=== PATIENT | male | born 1970 | race Caucasian/White ===

== ENCOUNTER 2020-01-03 08:48 | Outpatient (CLI) | payer OTHER, SELFPAY ==
--- NOTE | 2020-01-07 13:39 | SLEEP_ITS ---
Home Sleep Test. DATE OF STUDY: 01/03/2020 REASON FOR THE STUDY: Obstructive sleep apnea syndrome. HISTORY: The patient is a 49-year-old male, 5 feet 10 inches tall, weighing 287 pounds with a body mass index of 41.1. He has a documented history of obstructive sleep apnea syndrome, currently untreated. The patient did not complete any sleep survey. His medical record indicates that he had a history of sleep apnea, but I do not have documentation. He has been gaining weight recently. He does not appear to have hypertension or depression, although he does have erectile dysfunction, hyperlipidemia, migraines, chronic knee pain, atypical chest pain, hypogonadism, osteoarthritis, anemia due to B12 deficiency, and splenomegaly. He was scheduled to have a home sleep study on the last visit, but he failed to follow through with it. He does snore, wakes up feeling unrefreshed, has excessive daytime sleepiness. He has irritable bowel syndrome. He has a mildly positive rheumatoid factor in the past. He presents at this time for home sleep test. MEDICATIONS: 1. Fluticasone nasal spray 1 spray each nostril twice a day. 2. Meloxicam 15 mg daily as needed for pain. DESCRIPTION OF THE STUDY: On the [place]de Sleepiness Scale, he does not look like he filled it out. This was conducted as a home sleep test with 4-channel monitoring including respiratory effort channel, oxygen desaturation channel, snoring channel, and heart rate channel. The study was scored using [facility] guidelines. Duration of the study was 5 hours 55 minutes. The apnea-hypopnea index was 5. Minimum desaturation was 84%. The mean saturation was 89%. He had 2 apneas that were both obstructive. 27 hypopneas. He had 43 snoring events. He had 1828 limited breaths without snoring. He had 28 desaturations and spent 56% of the study 199 minutes below 88% saturation. Heart rate ranged from 43 to 86. IMPRESSION: 1. Mild obstructive sleep apnea syndrome G47.33 with sustained hypoxemia throughout over half the study. Study duration was 5 hours 55 minutes. The patient does not have the comorbidities including hypertension or depression, which would allow him to proceed with CPAP titration. His symptom severity score is really not known because he did not complete a survey. Home sleep tests often under-represent severity of illness because the exact amount of sleep is not known. If the symptoms are significant, we would recommend the patient have an in-lab split night study using a sleep aid. He definitely has sustained hypoxemia and this is likely due to obstructive sleep apnea syndrome; however, we cannot initiate CPAP therapy based on the apnea-hypopnea index, which is due to insurance guidelines. 2. Elevated body mass index 41.1. The patient is being encouraged to strive to achieve ideal body mass index. 3. Multiple medical problems as listed above. ELLIOT RUBALCAVA M.D. NIGHT SUPERVISOR NIGHT SUPERVISOR D I MT: Dorian BANSAL
== END 2020-01-03 08:49 | disposition home or self-care (01) ==
LOC: ANHCSM 08:50
PROVIDERS: Visit Provider Family Medicine
DX: G47.33 Obstructive sleep apnea (adult) (pediatric) (principal)
CPT/HCPCS: 95806

== ENCOUNTER 2020-09-07 09:41 | Outpatient (CLI) | payer OTHER, SELFPAY ==
--- NOTE | 2020-09-07 09:45 | ECHO_ITS ---
Patient Info Name: Marcos Lainez Age: 50 years : 1970 Gender: Male Ht: 71 in Wt: 289 lbs BSA: 2.62 m2 BP: 151 / 79 mmHg Heart Rhythm: Sinus Rhythm Exam Date: 09/07/2020 9:56 AM Exam Location: [facility] Patient Status: Outpatient Admit Date: 09/07/2020 Staff Ordering Physician: Yazan Hannah MD Senior Electronics Design Engineer: Lily Martin RDCS Attending Provider: Yazan Hannah MD Referring Physician: Brielle CASTRO; Exam Type: CA echo doppler color flow Study Info Indications - AORTIC ECTASIA Complete two-dimensional, color flow and Doppler transthoracic echocardiogram is performed. Summary 1. Complete two-dimensional, color flow and Doppler transthoracic echocardiogram is performed. 2. Left ventricular chamber size, systolic and diastolic function are normal with no regional wall motion abnormalities with an estimated ejection fraction of 60-65%. Mild left ventricular hypertrophy. Borderline low average global longitudinal strain of-17%, suggesting borderline low systolic function dysfunction. 3. Right ventricular chamber dimension is mildly enlarged with normal contractility. 4. Normal aortic root size. Sinuses of Valsalva are generous at 3.6 cm. Ascending aorta is normal, 2.9 cm. Aortic arch is generous, 3.2-3.7 cm. Normal descending thoracic aorta that can be visualized, 2.1 cm. Normal abdominal aorta they can be visualized, 1.7-2.4 cm. 5. No significant valve disease. 6. Unable to calculate pulmonary pressure with this study. 7. Normal sinus rhythm. Left Ventricle Left ventricular chamber dimension is normal. Left ventricular systolic function is normal, estimated at 60-65%. There is mildly increased left ventricular wall thickness. Left ventricular septal wall motion is normal. The left ventricular diastolic function is normal. Global longitudinal strain is mildly elevated at 17 %. Left ventricular chamber size, systolic and diastolic function are normal with no regional wall motion abnormalities with an estimated ejection fraction of 60-65%. Mild left ventricular hypertrophy. Borderline low average global longitudinal strain of-17%, suggesting borderline low systolic function dysfunction. Right Ventricle Right ventricular chamber dimension is mildly enlarged with normal contractility. Right ventricular systolic function is normal. Left Atria Left atrial chamber dimension is normal. Right Atria Right atrial chamber dimension is normal. Aortic Valve The aortic valve is trileaflet. There is no aortic valve sclerosis. There is no aortic valve stenosis. There is no aortic valve regurgitation. Pulmonic Valve The pulmonic valve is normal. There is no pulmonic valve stenosis. There is trace pulmonic regurgitation. Mitral Valve The mitral valve has normal leaflets. There is no mitral valve stenosis. There is trace mitral valve regurgitation. Tricuspid Valve The tricuspid valve leaflets are normal. There is no significant tricuspid valve stenosis. There is trace tricuspid valve regurgitation. No pulmonary hypertension, estimated pulmonary arterial systolic pressure is Empty. Pericardium/Pleural The pericardium appears normal. There is no pericardial effusion. Inferior Vena Cava Normal inferior vena cava with >50% collapse upon inspiration consistent with Empty right atrial pressure, Empty. Aorta The aortic root size at the sinus of Valsalva is normal. The prox ascending aorta size is borderline dilated. The aor
== END 2020-09-07 09:42 | disposition home or self-care (01) ==
PROVIDERS: Visit Provider Family Medicine
DX: I77.810 Thoracic aortic ectasia (principal)
CPT/HCPCS: 93306

== ENCOUNTER 2020-09-09 00:59 | Outpatient (CLI) | payer OTHER, SELFPAY ==
[2020-09-09 18:59] LABS: SARS-CoV-2 RNA PCR Negative
== END 2020-09-09 01:00 | disposition home or self-care (01) ==
LOC: ANHCOVIDDT 00:59
PROVIDERS: Visit Provider Internal Medicine Critical Care Medicine
DX: Z01.812 Encounter for preprocedural laboratory examination (principal); Z20.828 Contact with and (suspected) exposure to other viral communicable diseases
CPT/HCPCS: 87635; C9803; U0003

== ENCOUNTER 2020-09-12 08:23 | Outpatient (CLI) | payer OTHER, SELFPAY ==
--- NOTE | 2020-10-09 09:31 | WPDSLEEPSTUD ---
Sleep Study Date of Study: 09/12/20 Ordering Provider: Yazan Hannah MD Interpreting Physician: Disha Schultz MD Sleep Study Type: Polysomnogram Height: 1.8 m Weight: 131.542 kg Body Mass Index: 40.4 Neck Circumference: 44.45 cm [place]: 2 Reason for Sleep Study History of obstructive sleep apnea syndrome on a home sleep test 01/03/2020 with hypoxemia Sleep History Marcos Lainez is a 50 yo man with a history of obstructive sleep apnea syndrome who was not on treatment in the past. On January 03, 2020 he had a home sleep test with sustained hypoxemia and an apnea-hypopnea index of 5. He did not have medical comorbidities such as hypertension or depression that would allow him to proceed with treatment. During the home sleep test in January he spent 58% of the study, 199 minutes below 88% saturation. his basic sleep study was performed to further evaluate his degree of sleep disordered breathing. the patient occasionally snores, rarely loudly enough that others complain about it. he does not awaken at night with heartburn, belching or coughing. He rarely awakens from sleep feeling short of breath. He rarely has trouble sleep with a cold, rarely wakes up gasping for breath at night. He does not have breathing problems at night reported to him by others. He does not sweat excessively at night. He occasionally notices his heart pounding irregularly at night. He rarely falls asleep during the day, never involuntarily and never while driving. He does not fall asleep during physical effort. He does not have loss of muscle tone during strong emotion. He does not have daytime difficulties due to excessive sleepiness. He does not feel paralyzed on waking or falling asleep. He does not have vivid dreamlike scenes upon awakening or falling asleep. He is never afraid to go to sleep. He rarely has anxiety. He does not feel sad or depressed. He rarely has racing thoughts and rarely remembers his dreams. He never has nightmares. He occasionally notices parts of his body jerking. He rarely kicks at night. He does not have Reyes aching feelings in his legs, does not have leg pain at night and does not have morning jaw pain. He does not grind his teeth during sleep. He rarely has bothered by pain during the day. He has never awakened by pain at night. He frequently wakes up feeling stiff in the morning with sore achy muscles and pain in the neck and spine. He has palpitations, bowel disturbances, and stomach problems. He reports having sinus problems and problems with GERD. Normal bedtime is midnight falling asleep within 15 minutes, waking 2-3 times to urinate. during these nighttime awakenings he stays awake for about 5 minutes and then returns to sleep. We can schedule shows that he goes to bed at 1:00 a.m. instead of been night. During the weekday he wakes at 7:00 a.m. and on weekends 9:00 a.m.. He does not usually take naps. A short nap may be refreshing. He feels better in the afternoon in the morning. Habits: Never smoked tobacco. He drinks 3 sodas a day 32 oz each. He has 1 alcoholic beverage a week. [facility] Past Medical History Medical History (Updated 10/09/20 @ 09:51 by Disha Schultz MD) Atypical chest pain Dilated aortic root Encounter for prostate cancer screening Gastritis GERD (gastroesophageal reflux disease) Male erectile dysfunction, unspecified Morbid obesity with BMI of 40.0-44.9, adult Obstructive sleep apnea of adult Protein in urine Vitamin B12 deficiency anemia Vitamin D deficiency, unspecified Family History Family History Sibling Family history of gastrointestinal disorder Mother Patient's mother is in good health Family history of arthritis Father Patient's father is , Onset Age: 57 Family history of pancreatic cancer Grandparent Family history of liver disease, Onset Age: 55 Family history of arthritis Family histor
[2020-10-09 10:05] VITALS: BMI 40.4
== END 2020-09-12 08:24 | disposition home or self-care (01) ==
LOC: ANHCSM 08:23
PROVIDERS: Visit Provider Family Medicine
DX: G47.33 Obstructive sleep apnea (adult) (pediatric) (principal); E66.9 Obesity, unspecified; Z68.41 Body mass index [BMI] 40.0-44.9, adult
CPT/HCPCS: 95810

== ENCOUNTER 2020-10-23 14:38 | Outpatient (CLI) | payer OTHER, SELFPAY ==
--- NOTE | ~2020-10-23 | CT_ITS ---
EXAMINATION: CT abdomen pelvis wo con EXAM DATE: 10/23/2020 15:00 INDICATION: Left flank pain. TECHNIQUE: Spiral CT of the abdomen and pelvis was performed without contrast. Axial, coronal and s agittal images were reviewed. The dose-length product (DLP) for this examination was 1555.82 mGy-cm. The exposure was tailored according to patient size (auto mA exposure control), and iterative recon struction (ASIR) was used as additional dose reduction technique. There is no prior study for compar segun. FINDINGS: The liver, spleen, adrenal glands and pancreas are unremarkable. Gallbladder is unremarkab le. No biliary obstruction. There is no nephrolithiasis or hydronephrosis. The prostate is unrema rkable. The bladder is unremarkable. There is no retroperitoneal or pelvic lymphadenopathy. The appendix is normal. The stomach and small bowel are unremarkable. There is expected amount of c olonic stool. No free intraperitoneal gas. The heart is normal in size. There are no pericardial or pleural effusions. The lung bases are unremarkable. The bones are unremarkable. IMPRESSION: 1. No acute intra-abdominal findings. Reviewed, dictated and finalized at location B. RINGER
== END 2020-10-23 14:39 | disposition home or self-care (01) ==
LOC: ANHIMG 14:47
PROVIDERS: Visit Provider Family Medicine
DX: R10.9 Unspecified abdominal pain (principal); R31.29 Other microscopic hematuria
CPT/HCPCS: 74176

== ENCOUNTER 2020-11-07 07:56 | Outpatient (CLI) | payer OTHER, SELFPAY ==
--- NOTE | ~2020-11-07 | CT_ITS ---
EXAMINATION: CT abdomen pelvis wo/w con DATE: 11/07/2020 08:56 INDICATION: Gross hematuria TECHNIQUE: Computed tomography (CT) of the abdomen and pelvis was performed without and subsequently with 130 cc Omnipaque 350 intravenous contrast. Automated exposure control and iterative reconstructi on technique were employed. Exam dose: 3229.55 mGy-cm total exam DLP. COMPARISON: 10/23/2020 CT abdomen pelvis FINDINGS: There is mild discoid atelectasis or scarring in the medial segment of the middle lobe. The lung bases are otherwise clear. Normal heart size. No pericardial or pleural effusion. There is a several millimeter right hepatic cyst (series 7 image 34). Otherwise the liver, gallbladde r, bile ducts, spleen, pancreas and adrenal glands are unremarkable. Approximately 5 right renal cysts are noted, the largest approximately 1.3 cm. There is a nonspecific focal anterolateral right renal upper pole approximately 8 x 10 mm area of hyp oenhancement. Differential diagnosis includes complicated cyst, small focal infarct, focal area of py elonephritis, small hypernephroma. No left renal mass lesion is detected. No urinary tract calculus or hydroureteronephrosis. No filling defect of the renal collecting structures, ureters or urinary bladder is evident. Mild pro minence of the prostate gland. No thickening of the wall of the urinary bladder. Normal caliber of the abdominal aorta. No intraperitoneal or retroperitoneal or pelvic mass lesion or adenopathy or ascites. Normal appendix. No bowel obstruction, bowel wall thickening, pneumatosis or intraperitoneal free air . Included skeletal structures are unremarkable. No suspicious osteolytic or osteoblastic lesions are n oted. IMPRESSION: Indeterminate approximately 8 x 10 mm focal area of diminished enhancement in the periph eral aspect of the anterolateral upper pole of the right kidney; differential diagnosis is given abov e. Consider at a minimum [address] follow-up. Right renal cysts measuring up to 1.3 cm Reviewed, dictated and finalized at Location A. Reviewed, dictated and finalized at location A. STERED NURSE POST PARTUM IMPRESSION: Indeterminate approximately 8 x 10 mm focal area of diminished enh ancement in the peripheral aspect of the anterolateral upper pole of the right kidney; differential diagnosis is given above. Consider at a minimum [address] follow-up. Right renal cysts measuring up to 1.3 cm
== END 2020-11-07 07:57 | disposition home or self-care (01) ==
PROVIDERS: Visit Provider Urology
DX: R31.0 Gross hematuria (principal); N28.1 Cyst of kidney, acquired
CPT/HCPCS: 74178; Q9967

== ENCOUNTER 2021-01-31 09:55 | Outpatient (CLI) | payer OTHER, SELFPAY ==
--- NOTE | ~2021-01-31 | MR_ITS ---
EXAMINATION: MR abdomen wo/w con DATE: 01/31/2021 11:14 INDICATION: Right renal cyst TECHNIQUE: Magnetic resonance imaging (MRI) of the abdomen was performed without and with 20 mL Multi ruth intravenous contrast. Sequences included coronal T2-weighted SS-FSE, coronal and axial FS 2D-F IESTA, axial STIR FSE, axial T2-weighted SS-FSE, axial T2-weighted FS SS-FSE, axial diffusion-weighte d SE, axial dual-echo T1-weighted FSPGR, and axial and coronal T1-weighted LAVA. Postcontrast axial T 1-weighted LAVA images were obtained in a time course. Postcontrast coronal T1-weighted LAVA images w ere obtained. COMPARISON: CT dated 11/07/2020 FINDINGS: Heart size is normal. No pericardial or pleural effusion. Tiny 4 mm nonenhancing T2 hyperintense cyst at the posterior dome of the liver. Liver is otherwise unremarkable. Gallbladder is normal. No intra or extrahepatic primary ductal dilation. Spleen, pancreas, bilateral adrenal glands and left kidney are normal. A few T2 hyperintense right renal cysts the largest measuring 1.5 cm. There is a 10 mm Tommy sniak 2 cyst at the upper pole of the right kidney with internal thin internal septation. Finally the re is an 8 mm enhancing nodule at the anterosuperior aspect of the upper pole of the right kidney con sistent with renal cell carcinoma. Visualized portions of the bowels are unremarkable with no obstruc tion. Small fat-containing umbilical hernia. No pathologically enlarged abdominal lymphadenopathy. No rmal bone marrow signal throughout. IMPRESSION: 1. 8 mm enhancing nodule at the upper pole of the right kidney concerning for renal cell carcinoma. Reviewed, dictated and finalized at location B. ING AND TRIM INSTALLER IMPRESSION: 1. 8 mm enhancing nodule at the upper pole of the right kidney concerning for r enal cell carcinoma.
[2021-01-31 10:44] LABS: Estimated Glomerular Filt Rate > 60
== END 2021-01-31 09:56 | disposition home or self-care (01) ==
PROVIDERS: PCP Family Medicine; Visit Provider Urology
DX: N28.1 Cyst of kidney, acquired (principal)
CPT/HCPCS: 74183; A9577

== ENCOUNTER → 2022-02-25 02:46 | Outpatient (CLI) | payer OTHER, SELFPAY ==
[2022-02-25 11:33] LABS: SARS-CoV-2 RNA PCR Negative
== END ==
PROVIDERS: PCP Family Medicine; Visit Provider Internal Medicine Gastroenterology
DX: Z01.812 Encounter for preprocedural laboratory examination (principal); Z20.822 Contact with and (suspected) exposure to COVID-19
CPT/HCPCS: C9803; U0003; U0005

== ENCOUNTER 2022-02-28 00:08 | Day surgery (SDC) | payer OTHER, SELFPAY ==
[2021-12-20 13:15] VITALS: BMI 40.4
[2022-02-14 14:54] VITALS: BMI 40.5
[2022-02-28 08:19] VITALS: BP 137/89; PULSE 73; RESP 18; TEMP 36.4; O2SAT 98; BMI 40.8
[2022-02-28] MEDS: LACTATED RINGERS 1,000 ML 150 ML IV CONT (08:29)
--- NOTE | 2022-02-28 08:33 | WPDGICN ---
Assessment and Plan Assessment and plan (1) Polyp of colon: Qualifiers: Colon polyp type: unspecified Colon location: unspecified part of colon Qualified Code(s): K63.5 - Polyp of colon Code(s): K63.5 - Polyp of colon Status: Acute Assessment and Plan: Patient has a history of colon polyp removed from the colon 2016. Plan is for surveillance colonoscopy now and in the future. GI Consult Note Consult date/time: 02/28/22 08:33 HPI: Marcos Lainez is a 52 year old male Presents for screening colonoscopy. Patient's current weight appetite and bowel movements are normal. He denies abdominal pain. He has had no bleeding. Patient does have a history of adenomatous colon polyp removed from the colon 2016. Patient's family history is noncontributory. Patient presents today for screening colonoscopy. Review of Systems Review of Systems: All systems reviewed & are unremarkable except as noted in HPI and below PMFSH Past Medical History Medical History (System 02/07/22 @ 08:45 by Leyda Goodwin) Acute right flank pain Arthritis Atypical chest pain Dilated aortic root Encounter for prostate cancer screening Essential hypertension Family history of rheumatism Gastritis GERD (gastroesophageal reflux disease) Male erectile dysfunction, unspecified Microscopic hematuria Morbid obesity with BMI of 40.0-44.9, adult Obstructive sleep apnea Sleep study in lab on 09/12/2020 with moderate MARILYN with AHI of 18.6 with oxygen saturation down 84% with recommendation for auto titrating CPAP at 6-16 cm of water pressure on 10/09/2020. failure on CPAP Protein in urine Right renal mass UTI (urinary tract infection) Vitamin B12 deficiency anemia Vitamin D deficiency, unspecified Family History Family History Sibling Family history of gastrointestinal disorder Mother Patient's mother is in good health Family history of arthritis Father Patient's father is , Onset Age: 57 Family history of pancreatic cancer Grandparent Family history of liver disease, Onset Age: 55 Family history of arthritis Family history of pancreatic cancer Social History Social History (System 02/07/22 @ 08:45 by Leyda Goodwin) Smoking status: Never smoker Alcohol intake: current Drinks per week: 2 Alcohol use details: occassional Substance use: never Substance use type: does not use Living arrangements: with family Spiritual care concerns: No Meds Home Medications and Allergies Home Medications Medication Instructions Recorded Confirmed Type sildenafil 100 mg tablet 100 mg PO DAILY PRN #10 tablet 01/30/22 02/14/22 Rx Allergies Allergy/AdvReac Type Severity Reaction Status Date / Time No Known Allergies Allergy Verified 02/07/22 08:45 Vital Signs Vital Signs - 24 hr 02/28/22 08:19 Temperature 97.6 F Pulse Rate 73 Respiratory Rate 18 Blood Pressure 137/89 Pulse Oximetry 98 Exam Narrative: Physical exam reveals patient be alert. Vital signs stable. HEENT exam is unremarkable. Patient is anicteric. Lungs are clear to auscultation and percussion. Heart is without murmur or extra sounds. Abdominal exam bowel sounds present soft nontender with no hepatosplenomegaly. Digital external rectal exam is normal.
--- NOTE | 2022-02-28 09:22 | WPDANESEPPF ---
Anes - Initial Pre Proc Eval Procedure: Operation Date: 02/28/22 09:45 Proposed Procedures p Screening Colonoscopy - Branden Gupta MD Date/Time: 02/28/22 09:22 Surgeon: Branden Gupta MD Pre Op Diagnosis: hx of colon polyps Patient Data Age: 52 Gender: M Height: 1.8 m Weight: 133 kg Last Vital Signs Temp 97.6 F 02/28/22 08:19 Pulse 73 02/28/22 08:19 Resp 18 02/28/22 08:19 BP 137/89 02/28/22 08:19 Pulse Ox 98 02/28/22 08:19 Allergies Allergy/AdvReac Type Severity Reaction Status Date / Time No Known Allergies Allergy Verified 02/07/22 08:45 Home Medications Medication Instructions Recorded Confirmed Type sildenafil 100 mg tablet 100 mg PO DAILY PRN #10 tablet 01/30/22 02/14/22 Rx Patient hx anesthesia problems: none Family hx anesthesia problems: none Results Review: All pre-operative results and documents have been reviewed as part of the pre-operative evaluation. [facility] Past Medical History Medical History (System 02/07/22 @ 08:45 by Leyda Goodwin) Acute right flank pain Arthritis Atypical chest pain Dilated aortic root Encounter for prostate cancer screening Essential hypertension Family history of rheumatism Gastritis GERD (gastroesophageal reflux disease) Male erectile dysfunction, unspecified Microscopic hematuria Morbid obesity with BMI of 40.0-44.9, adult Obstructive sleep apnea Sleep study in lab on 09/12/2020 with moderate MARILYN with AHI of 18.6 with oxygen saturation down 84% with recommendation for auto titrating CPAP at 6-16 cm of water pressure on 10/09/2020. failure on CPAP Protein in urine Right renal mass UTI (urinary tract infection) Vitamin B12 deficiency anemia Vitamin D deficiency, unspecified Family History Family History Sibling Family history of gastrointestinal disorder Mother Patient's mother is in good health Family history of arthritis Father Patient's father is , Onset Age: 57 Family history of pancreatic cancer Grandparent Family history of liver disease, Onset Age: 55 Family history of arthritis Family history of pancreatic cancer Social History Social History (System 02/07/22 @ 08:45 by Leyda Goodwin) Smoking status: Never smoker Alcohol intake: current Drinks per week: 2 Alcohol use details: occassional Substance use: never Substance use type: does not use Living arrangements: with family Spiritual care concerns: No Anes - Eval Final PreProcedure Day of Procedure 02/28/22 09:22 Patient weight: morbidly obese Heart: regular rate and rhythm Airway: Mallampati scale class II Neurological: alert and oriented Last oral intake: >/= 8 hours ASA classification: III Emergent: no Anesthetic plan: proceed Anesthesia type and monitoring: general GIVS and standard monitoring Results Review: All pre-operative results and documents have been reviewed as part of the pre-operative evaluation. Informed Consent: The patient's anesthetic plan and its attendant risks and benefits were discussed with the patient/family/POA. Questions were solicited and answers provided to the satisfaction of the patient/family/POA.
[2022-02-28 10:02] VITALS: BP 134/94; PULSE 63; RESP 16; O2SAT 93
[2022-02-28 10:12] VITALS: BP 139/92; PULSE 65; RESP 19; O2SAT 97
[2022-02-28 10:22] VITALS: BP 142/99; PULSE 63; RESP 13; O2SAT 97
== END 2022-02-28 10:39 | disposition home or self-care (01) ==
PROVIDERS: PCP Family Medicine; Visit Provider Internal Medicine Gastroenterology
PROC: 0DJD8ZZ Inspection of Lower Intestinal Tract, Via Natural or Artificial Opening Endoscopic (ICD-10-PCS; CPT 45378; principal; 2022-02-28 09:45)
DX: Z12.11 Encounter for screening for malignant neoplasm of colon (principal); K64.8 Other hemorrhoids; Z86.010 Personal history of colon polyps; I10 Essential (primary) hypertension; K21.9 Gastro-esophageal reflux disease without esophagitis; G47.33 Obstructive sleep apnea (adult) (pediatric); E55.9 Vitamin D deficiency, unspecified; D51.3 Other dietary vitamin B12 deficiency anemia; E66.01 Morbid (severe) obesity due to excess calories; Z68.41 Body mass index [BMI] 40.0-44.9, adult
CPT/HCPCS: 45378; C9803; J2704; J7120; U0003; U0005

== ENCOUNTER 2022-05-23 18:27 | Emergency (ER) | payer OTHER, SELFPAY ==
[2022-05-23 18:30] VITALS: BP 157/101; PULSE 66; RESP 16; O2SAT 100
--- NOTE | 2022-05-23 18:31 | ECG_ITS ---
Measurements Intervals [place] Rate: 61 P: 52 [place]: 190 QRS: 7 QRSD: 102 T: 44 QT: 442 QTc: 447 Interpretive Statements SINUS RHYTHM NORMAL ECG COMPARED TO ECG 06/21/2019 10:12:23 NO SIGNIFICANT CHANGES Electronically Signed On 05-24-2022 16:38:56 CDT by John Lind M.D.
[2022-05-23 18:49] LABS: Basophils Absolute Auto 0.1 K/mm3 (0.0-0.1); Basophils Percent Auto 0.9 % (0.2-1.2); Eosinophils Absolute Auto 0.2 K/mm3 (0-0.3); Eosinophils Percent Auto 2.2 % (0-4.4); Hematocrit 47.5 % (42.0-52.0); Hemoglobin 16.2 g/dL (14.0-18.0); Immature Granulocyte Absolute 0.03 K/mm3 (0.00-0.031); Immature Granulocyte Percent A 0.4 % (0-0.5); Lymphocytes Absolute Auto 2.57 K/mm3 (0.9-3.2); Lymphocytes Percent Auto 31.8 % (18.3-44.2); Mean Corpuscular HGB Conc 34.1 g/dl (32-36); Mean Corpuscular Hemoglobin 30.5 pg (26-34); Mean Corpuscular Volume 89.3 fl (80-100); Mean Platelet Volume 10.3 fl (7.4-10.4); Monocytes Absolute Auto 0.4 K/mm3 (0.1-0.6); Monocytes Percent Auto 5.3 % (2.6-8.5); Neutrophils Absolute Auto 4.8 K/mm3 (1.3-6.7); Neutrophils Percent Auto 59.4 % (45.5-73.1); Platelet Count Result 265 k/mm3 (150-375); Red Blood Count 5.32 M/mm3 (4.6-6.20); Red Cell Distribution Width 12.8 % (11.5-14.5); White Blood Count 8.1 K/mm3 (4.5-10.0)
[2022-05-23 18:59] LABS: Alanine Aminotransferase 21 U/L (6-50); Albumin Level 4.7 g/dL (3.5-5.1); Alkaline Phosphatase 65 U/L (38-126); Anion Gap 6 mmol/L (8-16); Aspartate Amino Transferase 26 U/L (17-59); Bilirubin,Total 2.4 mg/dL (0.2-1.3); Blood Urea Nitrogen 14 mg/dL (9-20); Calcium 9.6 mg/dL (8.4-10.2); Carbon Dioxide 29 mmol/L (22-30); Chloride 102 mmol/L (98-107); Estimated CRCL calculation 105 ml/min; Estimated Glomerular Filt Rate > 60; Glucose 103 mg/dL (65-110); Potassium 4.3 mmol/L (3.4-5.0); Sodium 137 mmol/L (137-145)
--- NOTE | 2022-05-23 19:16 | PC.NURSE ---
Talked to lab and added trop on at 19:13
--- NOTE | 2022-05-23 19:34 | ED.GENADULT ---
HPI - General Adult General Chief complaint: Recheck/Abnormal Lab/Rx Stated complaint: dizzy spells, high BP Time Seen by Provider: 05/23/22 18:41 History of Present Illness HPI narrative: Patient is a 52-year-old male who presents ER with reports of elevated blood pressure and dizziness. Reports at 11 AM he was having dizziness that lasted approximately 30 minutes. It is worse with turning his head and produce mild nausea. No vomiting or diaphoresis. No ringing in his ears. Reports chronic sinus issues but no worse than typical. Reports after that he began taking his blood pressure and his blood pressure was getting as high as 200/115 mmHg. He reports for the most part it was running in the 170s systolic. No history of hypertension. No chest pain or chest pressure. No racing the heart. No anxiousness. Related Data Home Medications Medication Instructions Recorded Confirmed cyanocobalamin (vitamin B-12) 1,000 mcg PO DAILY 04/03/22 04/03/22 1,000 mcg tablet multivitamin 1 tablet PO DAILY 04/03/22 04/03/22 Allergies Allergy/AdvReac Type Severity Reaction Status Date / Time No Known Allergies Allergy Verified 02/07/22 08:45 Review of Systems Review of Systems: All systems reviewed & are unremarkable except as noted in HPI and below Constitutional: Constitutional: Denies chills and Denies fever(s) ENT: Reports dizziness, Reports nasal congestion and Denies sore throat Cardiovascular: Cardiovascular: Denies chest pain, Denies rapid heart rate and Denies radiating jaw, neck or arm pain Respiratory: Respiratory: Denies cough and Denies dyspnea Gastrointestinal: Gastrointestinal: Denies abdominal pain, Reports nausea and Denies vomiting Neurologic: Reports vertigo, Denies headache(s), Denies focal weakness and Denies numbness [facility] Past Medical History Medical History (Updated 05/23/22 @ 20:19 by Carter Guajardo MD) Acute right flank pain Arthritis Atypical chest pain Dilated aortic root Encounter for prostate cancer screening PSA 1.1 on 04/03/2022. Essential hypertension Family history of rheumatism Rheumatoid factor 10.6 on 04/03/2022 with CRP 0.74. JOSE negative. Gastritis GERD (gastroesophageal reflux disease) Male erectile dysfunction, unspecified Total testosterone 354 with free testosterone low at 5.2 on 04/03/2022. Microscopic hematuria Morbid obesity with BMI of 40.0-44.9, adult Obstructive sleep apnea Sleep study in lab on 09/12/2020 with moderate MARILYN with AHI of 18.6 with oxygen saturation down 84% with recommendation for auto titrating CPAP at 6-16 cm of water pressure on 10/09/2020. failure on CPAP Protein in urine 2+ protein in the urine 04/03/2022. Right renal mass UTI (urinary tract infection) Vitamin B12 deficiency anemia level normal at 1481, folic acid 19, hemoglobin 16.6 on 04/03/2022. Vitamin D deficiency, unspecified Surgical History Surgical History (Updated 05/23/22 @ 19:36 by Carter Guajardo MD) No history of previous surgery Family History Family History Sibling Family history of gastrointestinal disorder Mother Patient's mother is in good health Family history of arthritis Father Patient's father is , Onset Age: 57 Family history of pancreatic cancer Grandparent Family history of liver disease, Onset Age: 55 Family history of arthritis Family history of pancreatic cancer Social History Social History Smoking status: Never smoker Alcohol intake: current Drinks per week: 2 Alcohol use details: occassional Substance use: never Substance use type: does not use Spiritual care concerns: No Exam Narrative: GENERAL: Well-appearing, well-nourished, and in no acute distress. HEAD: Normocephalic, atraumatic. EYES: PERRL and EOMI. ENT: Mucous membranes moist. TMs normal bilaterally. CHEST: Clear to auscultation.
[2022-05-23 19:39] LABS: Troponin I < 0.012 ng/mL (0.000-0.034)
[2022-05-23 20:11] VITALS: BP 149/94; PULSE 94
[2022-05-23 20:12] VITALS: BP 131/91; PULSE 57
[2022-05-23] MEDS: MECLIZINE HCL 25 MG TABLET PO (20:29)
== END 2022-05-23 20:39 | disposition home or self-care (01) ==
PROVIDERS: Emergency Provider Emergency Medicine; PCP Family Medicine
DX: R42 Dizziness and giddiness (principal); I10 Essential (primary) hypertension; M19.90 Unspecified osteoarthritis, unspecified site; K21.9 Gastro-esophageal reflux disease without esophagitis; E66.01 Morbid (severe) obesity due to excess calories; Z68.39 Body mass index [BMI] 39.0-39.9, adult; G47.33 Obstructive sleep apnea (adult) (pediatric); Z87.440 Personal history of urinary (tract) infections; D51.9 Vitamin B12 deficiency anemia, unspecified; E55.9 Vitamin D deficiency, unspecified
CPT/HCPCS: 36415; 80053; 84484; 85025; 93005; 99284; A9270

== ENCOUNTER 2024-01-21 13:07 | Outpatient (CLI) | payer OTHER, SELFPAY ==
--- NOTE | ~2024-01-21 | US_ITS ---
EXAMINATION: US renal BI DATE: 01/21/2024 13:53 INDICATION: Proteinuria, unspecified. TECHNIQUE: Multiple ultrasound grayscale images of the kidneys were obtained. COMPARISON: Abdomen MRI 01/31/2021 FINDINGS: The right kidney measures 11.2 x 5.1 x 5.2 cm. The left kidney measures 13.5 x 5.4 x 5.4 cm. The kidn eys demonstrate normal parenchymal echogenicity. There is a 1.2 cm cyst in right kidney. There is no hydronephrosis. The bladder is normal. IMPRESSION: 1. Normal kidney sizes. No hydronephrosis. Reviewed, dictated and finalized at location E. ET [employer]TELLIGENCE CONSULTANT
== END 2024-01-21 13:08 | disposition home or self-care (01) ==
PROVIDERS: PCP Family Medicine; Visit Provider Internal Medicine Nephrology
DX: R80.9 Proteinuria, unspecified (principal)
CPT/HCPCS: 76775

== ENCOUNTER → 2025-01-10 14:03 | Outpatient (CLI) | payer OTHER, SELFPAY ==
--- NOTE | ~2025-01-10 | XR_ITS ---
Supine and upright views of the abdomen Clinical history: Abdominal bloating, diarrhea Findings: Bowel gas pattern is nonspecific. No evidence for obstruction or free air. No abnormal mass lesion or calcification is seen. Osseous structures are intact. Impression: No significant abnormality is seen. Reviewed, dictated and finalized at [facility]. D SALES SPECIALIST Impression: No significant abnormality is seen.
--- OUTSIDE RECORDS SUMMARY | 2025-01-10 14:20 | XMS_ITS | Encounter Summary ---
Author Organization [facility] Address [address] [place] [address] Phone Care Team Providers Care Etiologist Name Role Phone Yazan Hannah MD Primary Care Provider [phone] Danny Dee MD Unavailable [phone] Reason for Referral * Procedure (Routine) - Authorized Specialty Diagnoses / Procedures Referred By Contkayleigh t Referred To Contact Diagnoses Primary osteoarthritis of both knees Procedures Large Joint Injection: bilateral knee Stephania Ordonez PA [address] [facility] [address] [place] [address] Phone: tel: fax: [facility] (All Locations) Referral ID Status Reason Start Date Expiration Date V isits Requested Visits Authorized [id number] Authorized 01/10/2025 02/09/2026 1 1 LE APPLICATION ARCHITECT Reason for Visit * Reason Comments Pain Pain Encounter Details Date Type Department Care Team (Latest Contact Info) Description 01/10/2025 9:45 AM ORACLE APPLICATION ARCHITECT Office Visit [facility] Orthopaedic Surgery [address] [facility] Medical Office Building [address] [place] [address] Stephania Ordonez PA [address] [place] [address] Primary osteoarthritis of both knees (Primary Dx) Social History Tobacco Use Types Packs/Day Years Used Date Smoking Tobacco: Never Smokeless Tobacco: Never AUDIT-C Answer Date Recorded Q1: How often do you have a drink containing alc ohol? 2-4 times a month 10/22/2022 Q2: How many drinks containi ng alcohol do you have on a typical day when you are drinking? 3 or 4 10/22/2022 Q3: How often do you have si x or more drinks on one occasion? Less than monthly 10/22/2022 Sex and Gender Information Value Date Recorded Sex Assigned at Not on file Legal Sex Male 12:02 PM ORACLE APPLICATION ARCHITECT Gender Identity Not on file Sexual Orientation Not on file documented as of this encounter Patient Instructions * Patient Instructions* Coleman Valencia RMA - 01/10/2025 9:45 AM ORACLE APPLICATION ARCHITECT Your injection included 80 mg of Depo-Medrol (cortisone) and 4cc???s Marcaine (numbing medication). You may resume taking ANY pain relieving medications immediately after the procedures, including anti-inflammatories. You may resume any blood thinners after the procedures. The numbing medication usually wears off 2-4 hours after the procedure. Ice the area 20 minutes at a time the day of the injection and the day after. The day after the injection you may feel worse than you did before you received the injection (refer to #5). If you are a diabetic please monitor your blood sugars the day of the injection and the day after. The cortisone may increase your blood sugars. The steroid medication usually takes up to TEN days to start to take effect and TWO WEEKS to have afull beneficial effect. If you have any questions regarding your procedure, please do not hesitate to contact the performing doctor???s office. LE APPLICATION ARCHITECT documented in this encounter Progress Notes * Stephania Ordonez PA - 01/10/2025 9:45 AM CSTAssociated Order(s): Large Joint Injection: bilateral knee Post-Procedure Diagnose(s): Primary osteoarthritis of both knees Images from the original note were not included. EST PATIENT VISIT CHIEF COMPLAINT: No chief complaint on file. HISTORY OF PRESENT ILLNESS: Marcos Lainez is a 54 y.o. male who presents for repeat bilateral knee injections. Previous injection was given on 09/29/2024 for degenerative osteoarthritis. He reports about 2 months of relief. No new injury/trauma. He is interested in gel injections. He would like repeat cortisone injections today. His smoking status is non-smoker. He is reportedly not diabetic. PATIENT QUESTIONNAIRE: No questionnaires on file. PAST MEDICAL HISTORY: Past Medical History: Diagnosis Date Sleep apnea PAST SURGICAL HISTORY: Past Surgical History: Procedure Laterality Date LAPAROSCOPIC PARTIAL NEPHRECTOMY Right by Dr. Dee at [facility] 10/22/2022 MEDICATIONS: Current Outpatient Medications on File Prior to Visit Medication Sig Dispense Refill acetaminophen 500 mg capsule Take 2 capsules (1,000 mg total) by mouth every 6 (six) hours 30 tablet 0 amoxicillin-clavulanate (AUGMENTIN) 875-125 mg per tablet Take 1 tablet by mouth every 12 (twelve) hours (Patient not taking: Reported on 12/14/2024) atorvastatin (LIPITOR) 20 mg tablet Take 1 tablet (20 mg total) by mouth nightly at bedtime cefdinir (OMNICEF) 300 mg capsule Take 1 capsule (300 mg total) by mouth every 12 (twelve) hours cyanocobalamin 2,000 mcg tablet Take 1 tablet (2,000 mcg total) by mouth every morning docusate sodium (COLACE) 100 mg capsule Take 1 capsule (100 mg total) by mouth 2 (two) times a day For constipation. 20 capsule 0 HYDROcodone-acetaminophen (NORCO) 5-325 mg per tablet Take 1 tablet by mouth every 6 (six) hours asneeded for pain (Patient not taking: Reported on 12/14/2024) 10 tablet 0 irbesartan (AVAPRO) 150 mg tablet Take 1 tablet (150 mg total) by mouth daily irbesartan (AVAPRO) 300 mg tablet Take 1 tablet (300 mg total) by mouth daily methylPREDNISolone (MEDROL DOSEPACK) 4 mg Dosepack Take 1 tablet (4 mg total) by mouth daily followpackage directions 1 packet 0 MULTIVITAMIN ORAL Take 2 tablets by mouth every morning sildenafiL (VIAGRA) 100 mg tablet Take 1 tablet (100 mg total) by mouth as needed No current facility-administered medications on file prior to visit. ALLERGIES: No Known Allergies SOCIAL HISTORY: Social History Tobacco Use Smoking status: Never Smokeless tobacco: Never Substance and Sexual Activity Drug use: Never Sexual activity: Defer Alcohol Use: Alcohol Misuse (10/22/2022) AUDIT-C Frequency of Alcohol Consumption: 2-4 times a month Average Number of Drinks: 3 or 4 Frequency of Binge Drinking: Less than monthly FAMILY HISTORY: No family history on file. PHYSICAL EXAMINATION: Vitals: Height: Weight: BMI: There is no height or weight on file to calculate BMI. General: Awake, alert, oriented to person, place, and time. Affect is normal. Hearing is normal to the spoken word. Breathing is unlabored. Patient transfers [id number], pushing up on the arms of the chair, ambulates slowly, steady gait using no assistive devices. Inspection of bilateral knees reveals no joint effusion, no signs of infection Extremities: Vascular: The dorsalis pedis pulse is palpable bilaterally. There is good perfusion of both feet with good capillary refill. Neurologic: The distal motor and sensory exam is grossly normal without appreciable deficit bilaterally. Intact extensor hallucis longus, flexor hallucis longus, tibialis anterior, and gastrocnemius soleus complex. Large Joint Injection: bilateral knee Performed by: Stephania Ordonez PA Authorized by: Stephania Ordonez PA Large Joint Injection/Aspiration: Consent Given by: Patient Site marked: the procedure site was marked Verbal consent obtained: Yes Supporting Documentation: Indications: Pain Procedure Details: Location: Knee Site: Bilateral knee Prep: patient was prepped and draped in usual sterile fashion Prep: patient was prepped using a clean technique Needle Size: 21 G Approach: Superior lateral Ultrasound guided: No Fluroscopic guidance: No Medications Right Large Joint Injection: 4 mL BUPivacaine HCl 0.25 % (2.5 mg/mL); 80 mg triamcinolone 40 mg/mL Medications Left Large Joint Injection: 4 mL BUPivacaine HCl 0.25 % (2.5 mg/mL); 80 mg triamcinolone 40 mg/mL Patient tolerance: Patient tolerated the procedure well with no immediate complications XRAYS/REVIEW OF STUDIES: None DIAGNOSIS: Bilateral knee degenerative osteoarthritis ASSESSMENT/PLAN: They would like to continue with conservative treatment. Injected the patient's bilateral knees with corticosteroid, and discussed post injection care. They were instructed to limit their activity for the next two days and then can gradually increase their activity as tolerated. We briefly discussed gel injections. We will see how he responds to this round cortisone. Continue with Tylenol, NSAIDs, topical gels, ice/heat/compression and activity modification as needed. Follow up as needed. [facility] Orthopedic Surgery Stephania Ordonez in collaboration with Dr. Vladimir Maki LE APPLICATION ARCHITECT documented in this encounter Plan of Treatment Not on file documented as of this encounter Procedures Procedure Name Priority Date/Time Associated Diagnosis Comments UT ARTHROCENTESIS ASPIR&/INJ MAJOR JT/BURSA W/O US Routine 01/10/2025 9:45 AM ORACLE APPLICATION ARCHITECT Primary osteoarthritis of both knees documented in this encounter Results * UT ARTHROCENTESIS ASPIR&/INJ MAJOR JT/BURSA W/O US (01/10/2025 9:45 AM ORACLE APPLICATION ARCHITECT) Narrative Stephania Ordonez PA - 01/10/2025 9:45 AM ORACLE APPLICATION ARCHITECT Stephania Ordonez PA 01/10/2025 11:42 AM Large Joint Injection: bilateral knee Performed by: Stephania Ordonez PA Authorized by: Stephania Ordonez PA Large Joint Injection/Aspiration: Consent Given by: Patient Site marked: the procedure site was marked Verbal consent obtained: Yes Supporting Documentation: Indications: Pain Procedure Details: Location: Knee Site: Bilateral knee Prep: patient was prepped and draped in usual sterile fashion Prep: patient was prepped using a clean technique Needle Size: 21 G Approach: Superior lateral Ultrasound guided: No Fluroscopic guidance: No Medications Right Large Joint Injection: 4 mL BUPivacaine HCl 0.25 % (2.5 mg/mL); 80 mg triamcinolone 40 mg/mL Medications Left Large Joint Injection: 4 mL BUPivacaine HCl 0.25 % (2.5 mg/mL); 80 mg triamcinolone 40 mg/mL Patient tolerance: Patient tolerated the procedure well with no immediate complications Stephania GERARDO IN CLINIC/BEDSIDE OR DERABLES Final Result documented in this encounter Visit Diagnoses Diagnosis Primary osteoarthritis of both knees- Primary documented in this encounter Administered Medications Inactive Administered Medications - up to 3 most recent administrations Medication Order MAR Action Action Date Dose Rate Site BUPivacaine HCl (MARCAINE) 0.25 % (2.5 mg/mL) injection 4 mL 4 mL, other, One-Time Injection, Starting on Fri01/10/25 at 0945, For 1 doseIndications:Primary osteoarthritis of both knees Given 01/10/2025 9:45 AM ORACLE APPLICATION ARCHITECT 4 mL BUPivacaine HCl (MARCAINE) 0.25 % (2.5 mg/mL) injection 4 mL 4 mL, other, One-Time Injection, Starting on Fri01/10/25 at 0945, For 1 doseIndications:Primary osteoarthritis of both knees Given 01/10/2025 9:45 AM ORACLE APPLICATION ARCHITECT 4 mL triamcinolone (KENALOG) 40 mg/mL injection 80 mg 80 mg, intra-articular, One-Time Injection, Starting on Fri01/10/25 at 0945, For 1 doseIndications:Primary osteoarthritis of both knees Given 01/10/2025 9:45 AM ORACLE APPLICATION ARCHITECT 80 mg triamcinolone (KENALOG) 40 mg/mL injection 80 mg 80 mg, intra-articular, One-Time Injection, Starting on Fri01/10/25 at 0945, For 1 doseIndications:Primary osteoarthritis of both knees Given 01/10/2025 9:45 AM ORACLE APPLICATION ARCHITECT 80 mg documented in this encounter Care Teams Etiologist Relationship Specialty Start Date End Date Yazan Hannah MD [address] [address] PCP - General 02/25/08 Danny Dee MD [address] [place] [address] Consulting Physician Urology 10/23/22 documented as of this encounter
--- OUTSIDE RECORDS SUMMARY | 2025-01-10 14:20 | XMS_ITS | Referral Summary ---
Author Organization [facility] [address] [facility] [address] Address [address] [place] [address] Care Team Providers Care Center Consultant Name Role Phone Yazan Hannah MD Primary Care Provider [phone] Danny Dee MD Unavailable [phone] Encounters Date Type Department Care Team Description 01/10/2025 9:45 AM ELEVATOR DISPATCHER Office Visit [facility] Orthopaedic Surgery [facility] Medical Office Building [address] [place] [address] Stephania Ordonez PA Primary osteoarthritis of both knees (Primary Dx) 12/14/2024 2:15 PM ELEVATOR DISPATCHER Ancillary Procedure Radiology - [address] [place] [address] [address] [place] [address] Acute pain of right knee 12/14/2024 2:00 PM ELEVATOR DISPATCHER Office Visit [facility] Orthopaedic Surgery [address] [place] [address] [address] [place] [address] Stephania Ordonez PA Acute pain of right knee (Primary Dx); Primary osteoarthritis of right knee from Last 3 Months Allergies No known active allergies Medications sildenafiL (VIAGRA) 100 mg tabletIndication s:Erectile Dysfunction Take 1 tablet (100 mg total) by mouth as needed 2 Active irbesartan (AVAPRO) 150 mg tablet Take 1 tablet (150 mg total) by mouth daily 2 Active MULTIVITAMIN ORALIndications: supplement Take 2 tablets by mouth every morning Active cyanocobalamin 2,000 mcg tabletIndication s:Prevention of Vitamin B12 Deficiency Take 1 tablet (2,000 mcg total) by mouth every morning Active acetaminophen 500 mg capsuleIndicatio ns:Pain Take 2 capsules (1,000 mg total) by mouth every 6 (six) hours 30 tablet 2 Active HYDROcodone-acet aminophen (NORCO) 5-325 mg per tabletIndication s:Pain Take 1 tablet by mouth every 6 (six) hours as needed for pain 10 tablet 2 Active Additional Information Patient not taking.Reported on 01/10/2025 docusate sodium (COLACE) 100 mg capsuleIndicatio ns:constipation Take 1 capsule (100 mg total) by mouth 2 (two) times a day For constipation. 20 capsule 2 Active amoxicillin-clav ulanate (AUGMENTIN) 875-125 mg per tablet Take 1 tablet by mouth every 12 (twelve) hours 4 Active atorvastatin (LIPITOR) 20 mg tablet Take 1 tablet (20 mg total) by mouth nightly at bedtime 4 Active cefdinir (OMNICEF) 300 mg capsule Take 1 capsule (300 mg total) by mouth every 12 (twelve) hours 4 Active irbesartan (AVAPRO) 300 mg tablet Take 1 tablet (300 mg total) by mouth daily 4 Active methylPREDNISolo ne (MEDROL DOSEPACK) 4 mg Dosepack Take 1 tablet (4 mg total) by mouth daily follow package directions 1 packet 5 Active Hospital, Clinic, or Other Facility Administered Medication Ordered Dose Route Frequency Start Date End Date Status BUPivacaine HCl (MARCAINE) 0.25 % (2.5 mg/mL) injection 4 mLIndications:Primar y osteoarthritis of both knees 4 mL OTHER One-Time Injection 01/10/2025 5 Ended BUPivacaine HCl (MARCAINE) 0.25 % (2.5 mg/mL) injection 4 mLIndications:Primar y osteoarthritis of both knees 4 mL OTHER One-Time Injection 01/10/2025 5 Ended triamcinolone (KENALOG) 40 mg/mL injection 80 mgIndications:Primar y osteoarthritis of both knees 80 mg intra-artic One-Time Injection 01/10/2025 5 Ended triamcinolone (KENALOG) 40 mg/mL injection 80 mgIndications:Primar y osteoarthritis of both knees 80 mg intra-artic One-Time Injection 01/10/2025 Ended Active Problems Problem Noted Date Diagnosed Date Renal cell cancer, right 12/20/2022 Kidney mass 10/22/2022 Renal mass 10/01/2022 Conductive hearing loss of r ight ear with restricted hearing of left ear 07/26/2021 Sprain of anterior cruciate ligament of knee Knee pain 02/28/2012 Contusion of knee 02/28/2012 Osteoarthritis of knee 02/26/2012 Social History Tobacco Use Types Packs/Day Years Used Date Smoking Tobacco: Never Smokeless Tobacco: Never Tobacco Cessation:Counseling Given: Not Answered AUDIT-C Answer Date Recorded Q1: How often [...] on file Legal Sex Male 12:02 PM ELEVATOR DISPATCHER Gender Identity Not on file Sexual Orientation Not on file Last Filed Vital Signs Vital Sign Reading Time Taken Comments Blood Pressure 126/79 11/01/2022 11:28 AM ELEVATOR DISPATCHER Pulse 75 11/01/2022 11:28 AM ELEVATOR DISPATCHER Temperature 36.7 C (98.1 F) 10/23/2022 1:39 PM ELEVATOR DISPATCHER Respiratory Rate 18 10/23/2022 1:39 PM ELEVATOR DISPATCHER Oxygen Saturation 94% 10/23/2022 1:39 PM ELEVATOR DISPATCHER Inhaled Oxygen Concentration - - Weight 142.4 kg (314 lb) 09/29/2024 9:32 AM CDT Height 179.1 cm (5' 10.5 ) 09/29/2024 9:32 AM CD T Body Mass Index 44.42 09/29/2024 9:32 AM CDT Plan of Treatment Not on file Medical Devices Implanted Type Area Pet Sitting Device Identifier Shelf Expiration Date Model / Serial / Lot [employer] Symmetry Vesolock Large Clip Internal [id number] - [id number] Implanted:Qty: 1 on 10/22/2022 by Danny Dee MD at [facility] Clip N/A: Abdomen [employer] 01/29/2025 [id number] / / [id number] [employer] Symmetry Bj Large Clip Internal [id number] - [id number] Implanted:Qty: 1 on 10/22/2022 by Danny Dee MD at [facility] Clip N/A: Abdomen [employer] 01/29/2025 [id number] / / [id number] Procedures Procedure Name Priority Date/Time Associated Diagnosis Comments [place] ARTHROCENTESIS ASPIR&/INJ MAJOR JT/BURSA W/O US Routine 01/10/2025 9:45 AM ELEVATOR DISPATCHER Primary osteoarthritis of both knees XR KNEE RIGHT 4 OR MORE VIEWS Schedule Routine, Read Routine (OP Routine) 12/14/2024 2:02 PM ELEVATOR DISPATCHER Acute pain of right knee from Last 3 Months Results * FL ARTHROCENTESIS ASPIR&/INJ MAJOR JT/BURSA W/O US (01/10/2025 9:45 AM ELEVATOR DISPATCHER) Narrative Stephania Ordonez PA - 01/10/2025 9:45 AM ELEVATOR DISPATCHER Stephania Ordonez PA 01/10/2025 11:42 AM Large [...] the procedure well with no immediate complications us Stephania Brody Ordonez PA IN CLINIC/BEDSIDE OR DERABLES Final Result * XR Knee Right 4 or More Views (12/14/2024 2:02 PM ELEVATOR DISPATCHER) Anatomical Region Laterality Modality Lower Extremities, Knee Right Computed Radiography 12/14/2024 3:19 PM ELEVATOR DISPATCHER Impressions 12/14/2024 3:19 PM ELEVATOR DISPATCHER Moderate medial compartment predominant tricompartmental right knee osteoarthritis with right knee effusion. Electronically signed by: Antonio Bryan M.D. Narrative 12/14/2024 3:19 PM ELEVATOR DISPATCHER EXAMINATION: XR KNEE RIGHT 4 OR MORE VIEWS HISTORY: Right knee osteoarthritis FINDINGS: 4 views of the right knee were performed with comparison made to 09/29/2024. There is a moderate right knee joint effusion. There is no acute fracture of the right knee. There is moderate medial compartment predominant tricompartmental right knee osteoarthritis. Procedure Note Antonio Bryan MD PhD - 12/14/2024 EXAMINATION: XR KNEE RIGHT 4 OR MORE VIEWS HISTORY: Right knee osteoarthritis FINDINGS: 4 views of the right knee were performed with comparison made to 09/29/2024. There is a moderate right knee joint effusion. There is no acute fracture of the right knee. There is moderate medial compartment predominant tricompartmental right knee osteoarthritis. IMPRESSION: Moderate medial compartment predominant tricompartmental right knee osteoarthritis with right knee effusion. Electronically signed by: Antonio Bryan M.D. Stephania GERARDO IMG XR PROCEDURES Fi nal Result from Last 3 Months Insurance [facility] [employer] Advance Directives For more information, please contact: [phone] * Full Code (Latest Code Status on File) Date Activated Date Inactivated Comments 10/22/2022 1:37 PM 10/23/2022 7:09 PM Care Teams Center Consultant Relationship Specialty Start Date End Date Yazan Hannah MD [address] [address] PCP - General 02/25/08 Danny Dee MD [facility] [place] [address] Consulting Physician Urology 10/23/22
--- OUTSIDE RECORDS SUMMARY | 2025-01-10 14:20 | XMS_ITS | Patient Health Summary ---
Author Organization [facility] Address [address] [place] [address] Care Team Providers Care Tourist Adviser Name Role Phone Yazan Hannah MD Primary Care Provider [phone] Note from [facility] [place] [facility] [place],non-owned Affiliates and Associated Physician Practices is amultiple site organization consisting of ambulatory clinics and hospital sitesin [place], [place], [place] and [place]. This disclosure is being madepursuant to the Care Everywhere program and may not contain all information available regarding this patient. Last updated 18.[facility] Allergies No known active allergies Medications Be aware that medications may not be up to date on this document. Always verify current medications with the patient. No known medications Active Problems Problem Noted Date Diagnosed Date Conductive hearing loss of r ight ear with restricted hearing of left ear 07/26/2021 Social History Tobacco Use Types Packs/Day Years Used Date Smoking Tobacco: Never Smokeless Tobacco: Never Alcohol Use Standard Drinks/Week Comments Yes 0 (1 standard drink = 0.6 oz pur e alcohol) occasionally Sex and Gender Information Value Date Recorded Sex Assigned at Not on file Gender Identity Not on file Sexual Orientation Not on file Last Filed Vital Signs Vital Sign Reading Time Taken Comments Blood Pressure 142/91 08/09/2021 1:13 PM CDT Pulse 63 08/09/2021 1:13 PM CDT Temperature - - Respiratory Rate - - Oxygen Saturation - - Inhaled Oxygen Concentration - - Weight 136.6 kg (301 lb 3.2 oz) 08/09/2021 1:13 PM CDT Height 180.3 cm (5' 11 ) 08/09/2021 1:13 PM CDT Body Mass Index 42.01 08/09/2021 1:13 PM CDT Procedures * LA EAR MICROSCOPY EXAMINATION(Performed 08/09/2021) Performed for Dysfunction of left eustachian tube * AUDIOLOGY/TYMPANOMETRY ORDER(Performed 08/09/2021) * CT TEMPORAL BONES WO CONTRAST(Performed 08/09/2021) Performed for Sensorineural hearing loss (SNHL) of right ear with restricted hearing of left ear, Mixed conductive and sensorineural hearing loss of left ear with restricted hearing of right ear, Dysfunction of left eustachian tube * LA EAR MICROSCOPY EXAMINATION(Performed 07/26/2021) Performed for Dysfunction of left eustachian tube * AUDIOLOGY/TYMPANOMETRY ORDER(Performed 07/26/2021) Results * LA EAR MICROSCOPY EXAMINATION (08/09/2021 5:14 PM CDT) Narrative Devaughn Maldonado MD - 08/09/2021 5:14 PM CDT Devaughn Maldonado MD 08/09/2021 5:14 PM Procedure: Microscopic exam of the ear(s) Findings: See main note. Procedure in detail: The binocular operating microscope and and ear speculum were used to exam the ear(s). The patient tolerated the procedure well and there was no bleeding. Devaughn Maldonado MD Devaughn Maldonado MD PROCEDURE/MINOR JOVANNY GICAL ORDERABLES * AUDIOLOGY/TYMPANOMETRY ORDER (08/09/2021 2:09 PM CDT) Narrative JensengabrielaSusan AuD - 08/09/2021 2:13 PM CDT History: Marcos Lainez arrived for a hearing evaluation. Patient has a known history of TM perforation for the left ear. He is being seen today for a repeat audiogram prior to surgery. Results: Puretone air conduction testing revealed mild sloping to severe (mixed) hearing loss in the left ear. Today's results were consistent with his last test indicating no significant change in hearing, except for an improvement noted at 250 Hz. Immittance measures revealed a Type A tympanogram in the right ear, indicating normal middle ear function. Results for the left ear revealed a Type B tympanogram, indicating abnormal middle ear function in that ear. These results were discussed in detail with the patient and all pertinent questions were answered. Recommendations: 1) ENT consult. 2) Re check per medical recommendation/following treatment. Lang Valdivia. [facility] Clinical Administrative Asst [facility]-Department of Otolaryngology/Audiology [facility] [address] [place] [address] ([facility]) [place] [address] Susan Landeros Lang AUDIOLOGY SERVICES O RDERABLES * CT TEMPORAL BONES WO CONTRAST (08/09/2021 12:35 PM CDT) Anatomical Region Laterality Modality Head Computed Tomogra phy 08/09/2021 2:17 PM CDT Impressions 08/09/2021 4:14 PM CDT IMPRESSION: 1.Postoperative changes of a simple left mastoidectomy are uncomplicated. 2.Cortical thinning of the tegmen tympanum on the left. 3.Bilateral semicircular canals are rarefied without dehiscence. I, Dr. JEB CHA have personally reviewed and interpreted this examination/study. This report was electronically signed by JEB CHA on 08/09/2021 4:14 PM . Narrative 08/09/2021 4:14 PM CDT EXAMINATION: CT OF THE TEMPORAL BONES WITHOUT CONTRAST HISTORY: H90.A21: Sensorineural hearing loss (SNHL) of right ear with restricted hearing of left ear; H90.A32: Mixed conductive and sensorineural hearing loss of left ear with restricted hearing of right ear; H69.82: Dysfunction of left eustachian tube TECHNIQUE: High-resolution CT of the temporal bones was performed without contrast according to standard protocol followed by axial and coronal reconstruction images by the technologist. COMPARISON: No prior study is available for comparison at the time of this dictation. FINDINGS: On the right side, the external auditory canal and auricle appear normal. The tympanic membrane is not thickened. The scutum is preserved. The mastoid air cells and the middle ear cavity including the middle ear ossicles appear normal. Tegmen tympanum and tegmen mastoideum are intact. Air is partially visible in eustachian tube. The superior semicircular canal is rarefied. Otherwise, the bony labyrinth, internal auditory canal, and petrous apex appear normal. The vestibular aqueduct, carotid canal, jugular foramen, and course of the facial nerve appear normal. On the left side, the patient is a status post simple left mastoidectomy. The external auditory canal and auricle appear normal. The tympanic membrane is normal. The scutum is preserved. The remaining mastoid air cells and the middle ear cavity are aerated and clear. The middle ear ossicles appear normal. There is cortical thinning of the tegmen tympanum. Tegmen mastoideum is intact. Superior semicircular canal is rarefied. Otherwise, the bony labyrinth, internal auditory canal and petrous apex appear normal. The vestibular aqueduct, carotid canal, jugular foramen, and course of the facial nerve appear normal. The visualized portions of the skull base and sinuses appear normal. No soft tissue abnormality is identified. Procedure Note Jeb Cha MD - 08/09/2021 EXAMINATION: CT OF THE TEMPORAL BONES WITHOUT CONTRAST HISTORY: H90.A21: Sensorineural hearing loss (SNHL) of right ear with restricted hearing of left ear; H90.A32: Mixed conductive and sensorineural hearing loss of left ear with restricted hearing of right ear; H69.82: Dysfunction of left eustachian tube TECHNIQUE: High-resolution CT of the temporal bones was performedwithout contrast according to standard protocol followed by axial and coronal reconstruction images by the technologist. COMPARISON: No prior study is available for comparison at the time ofthis dictation. FINDINGS: On the right side, the external auditory canal and auricle appearnormal. The tympanic membrane is not thickened. The scutum is preserved. The mastoid air cells and the middle ear cavity including the middle ear ossicles appear normal. Tegmen tympanum and tegmen mastoideum areintact. Air is partially visible in eustachian tube. The superior semicircular canal is rarefied. Otherwise, the bony labyrinth, internal auditorycanal, and petrous apex appear normal. The vestibular aqueduct, carotid canal, jugular foramen, and course of the facial nerve appear normal. On the left side, the patient is a status post simple leftmastoidectomy. The external auditory canal and auricle appear normal. The tympanic membrane is normal. The scutum is preserved. The remaining mastoid air cells and the middle ear cavity are aerated and clear. The middle ear ossicles appear normal. There is cortical thinning of the tegmentympanum. Tegmen mastoideum is intact. Superior semicircular canal is rarefied. Otherwise, the bony labyrinth, internal auditory canal and petrous apex appear normal. The vestibular aqueduct, carotid canal, jugular foramen, and course of the facial nerve appear normal. The visualized portions of the skull base and sinuses appear normal. No soft tissue abnormality is identified. IMPRESSION: 1.Postoperative changes of a simple left mastoidectomy areuncomplicated. 2.Cortical thinning of the tegmen tympanum on the left. 3.Bilateral semicircular canals are rarefied without dehiscence. I, Dr. JEB CHA have personally reviewed and interpreted this examination/study. This report was electronically signed by JEB CHA on 08/09/2021 4:14PM . Devaughn Maldonado MD CT ORDERABLES * LA EAR MICROSCOPY EXAMINATION (07/26/2021 1:03 PM CDT) Narrative Devaughn Maldonado MD - 07/26/2021 1:03 PM CDT Devaughn Maldonado MD 07/26/2021 3:20 PM Procedure: Microscopic exam of the ear(s) Findings: See main note. Procedure in detail: The binocular operating microscope and and ear speculum were used to exam the ear(s). The patient tolerated the procedure well and there was no bleeding. Devaughn Maldonado MD Devaughn Maldonado MD PROCEDURE/MINOR JOVANNY GICAL ORDERABLES * AUDIOLOGY/TYMPANOMETRY ORDER (07/26/2021 8:52 AM CDT) Narrative Stefan Bravo, PhD - 07/26/2021 9:27 AM CDT Marcos Lainez is a 51 year old male was seen for an assessment of their hearing. The patient reports difficulty hearing. There is not a report of dizziness. There is a report of tinnitus. There is not a report of otalgia. There is a report of noise exposure. There is not a history of hearing loss in the family. There is a history of previous ear surgery. Results: Findings were reviewed and discussed with Marcos Lainez following the hearing evaluation. Written interpretation is also noted in the audiogram report. Plan: 1. The risks and benefits of my recommendations, as well as other treatment options were discussed today. 2. I recommend that the patient follow up with their facility, ENT or PCP PRN. 3. SERGO Bravo, Ph.D., CORA., [facility] Rn Concurrent Review Director, Division of Audiology Department of Otolaryngology- Head & Neck Surgery [facility] Stefan Bravo PhD AUDIOLOGY SERVICES O [facility] Care Teams Tourist Adviser Relationship Specialty Start Date End Date Yazan Hannah MD [address] [facility] [address] [address] PCP - General 07/24/21
--- OUTSIDE RECORDS SUMMARY | 2025-01-10 14:20 | XMS_ITS | Clinical Summary ---
Author Organization [facility] Address [address] [place] [address] [place] [address] Care Team Providers Care Family Practice Nurse Practitioner Name Role Phone Unavailable Primary Care Provider Unavailabl e Encounters Date Type Department Care Team Description 12/14/2024 External Device Data STL ABSTRACTION Provider, Abstract from Last 3 Months Social History Tobacco Use Types Packs/Day Years Used Date Smoking Tobacco: Never Assessed Sex and Gender Information Value Date Recorded Sex Assigned at Not on file Legal Sex Male 2:50 PM CDT Gender Identity Not on file Sexual Orientation Not on file Plan of Treatment Health Maintenance Due Date Last Done Comments Pre-Diabetes and Diabetes Screening 1971 DTAP/TDAP/TD VACCINES (1 - Tdap) 1990 HEPATITIS B VACCINES (1 of 3 - 19+ 3-dose series) 01/02 COLORECTAL SCREENING 2016 Colorectal Cancer Screening 2016 FIT-DNA Q 3 years 2016 FIT/FOBT Q 1 year 2016 Flex Sig/CT Colonography Q 5 years 2016 ZOSTER VACCINE (1 of 2) 2021 INFLUENZA VACCINE (#1) [address] [facility] [id number]
--- OUTSIDE RECORDS SUMMARY | 2025-01-10 14:20 | XMS_ITS | Encounter Summary ---
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
--- OUTSIDE RECORDS SUMMARY | 2025-01-10 14:20 | XMS_ITS | Clinical Summary ---
Author Organization [facility] adjust Address [address] [place] [address] Care Team Providers Care Qm Consultant Name Role Phone Yazan Hannah MD Primary Care Provider [phone] Source Comments [facility] adjust,non-owned Affiliates and Associated Physician Practices is amultiple site organization consisting of ambulatory clinics and hospital sitesin [place], [place], [place] and [place]. This disclosure is being madepursuant to the Care Everywhere program and may not contain all information available regarding this patient. Last updated 18.[facility] Allergies No known active allergies Medications Be [...] Mass Index 42.01 08/09/2021 1:13 PM CDT Plan of Treatment Health Maintenance Due Date Last Done Comments COLOGUARD (AGES 45-75) - COL ON CA SCREENING 1971 COLON MONITORING 1971 COLONOSCOPY - COLON CA SCREENING 1971 CT COLONOGRAPHY - COLON CA SCREENING 1971 Colorectal Cancer Screening 1971 FIT - COLON CA SCREENING 1971 FLEX SIG - COLON CA SCREENING 1971 LIPID TESTING 1971 HIV SCREENING 1986 HEPATITIS C SCREENING 01/20/1989 DTAP/TDAP/TD VACCINES (1 - Tdap) 1990 HEPATITIS B VACCINE (1 of 3 - 19+ 3-dose series) 1990 PNEUMOCOCCAL VACCINE 50+ (1 of 1 - PCV) 2021 ZOSTER VACCINE (1 of 2) 2021 SCREENING FOR DIABETES 07/26/2021 COVID-19 VACCINE (1 - 2023-2 5 season) 2024 INFLUENZA VACCINE (#1) 2024 DEPRESSION SCREENING 12/01/2024 HIB VACCINE Aged Out No longer eligi ble based on patient's age to complete this topic HPV VACCINE Aged Out No longer eligi ble based on patient's age to complete this topic MENINGOCOCCAL (Group B) VACCINE Aged Out No longer eligible based on patient's age to complete this topic MENINGOCOCCAL VACCINE Aged Out No ni alisha eligible based on patient's age to complete this topic PNEUMOCOCCAL VACCINE Aged Out No long er eligible based on patient's age to complete this topic Care Teams Qm Consultant Relationship Specialty Start Date End Date Yazan Hannah MD [address] [place] [address] PCP - General 07/24/21
--- OUTSIDE RECORDS SUMMARY | 2025-01-10 14:20 | XMS_ITS ---
Author Organization [facility] [place] [address] Address [address] [place] [address] Care Team Providers Care Housing Liaison Name Role Phone Yazan Hannah MD Primary Care Provider [phone] Danny Dee MD Unavailable [phone] Active Problems Problem Noted Date Diagnosed Date Renal cell cancer, right 12/20/2022 Kidney mass 10/22/2022 Renal mass 10/01/2022 Conductive hearing loss of r ight ear with restricted hearing of left ear 07/26/2021 Sprain of anterior cruciate ligament of knee Knee pain 02/28/2012 Contusion of knee 02/28/2012 Osteoarthritis of knee 02/26/2012 Current Oncology Plans No current plan information found. Past Plans No past plan information found. Radiation Treatments * No radiation treatments are documented for this patient in [facility]. Treatments may have been administered in another system. Lifetime Dose Tracking * Chemical Lifetime Dose Automatic Entry Manual Entr y DLP 9,843 mGycm 9,843 mGycm 0 mGycm
--- OUTSIDE RECORDS SUMMARY | 2025-01-10 14:20 | XMS_ITS | Clinical Summary ---
Author Organization [facility] [address] Address [address] [place] [address] Care Team Providers Care Lab Courier Name Role Phone Yazan Hannah MD Primary Care Provider [phone] Danny Dee MD Unavailable [phone] Allergies No known active allergies Medications sildenafiL [...] mg intra-artic One-Time Injection 01/10/2025 5 Ended Active Problems Problem Noted Date Diagnosed Date Renal cell cancer, right 12/20/2022 Kidney mass 10/22/2022 Renal mass 10/01/2022 Conductive hearing loss of r ight ear with restricted hearing of left ear 07/26/2021 Sprain of anterior cruciate ligament of knee Knee pain 02/28/2012 Contusion of knee 02/28/2012 Osteoarthritis of knee 02/26/2012 Encounters Date Type Department Care Team Description 01/10/2025 9:45 AM DOMESTIC TRAVEL CONSULTANT Office Visit [facility] Orthopaedic Surgery [address] [place] [address] Medical Office Building [address] [place] [address] Stephania Ordonez PA Primary osteoarthritis of both knees (Primary Dx) 12/14/2024 2:15 PM DOMESTIC TRAVEL CONSULTANT Ancillary Procedure Radiology - [address] [facility] [address] [place] [address] Acute pain of right knee 12/14/2024 2:00 PM DOMESTIC TRAVEL CONSULTANT Office Visit [facility] Orthopaedic Surgery [address] [facility] 2nd [address] [place] [address] Stephania Ordonez PA Acute pain of right knee (Primary Dx); Primary osteoarthritis of right knee from Last 3 Months Surgical History Surgery Date Site/Laterality Comments LAPAROSCOPIC PARTIAL NEPHRECTOMY Right by Dr. Dee at [facility] 10/22/2022 Medical History Medical History Date Comments Sleep apnea Social History Tobacco Use Types Packs/Day Years [...] on file Legal Sex Male 12:02 PM DOMESTIC TRAVEL CONSULTANT Gender Identity Not on file Sexual Orientation Not on file Obstetrics History Last Filed Vital Signs Vital Sign Reading Time Taken Comments Blood Pressure 126/79 11/01/2022 11:28 AM DOMESTIC TRAVEL CONSULTANT Pulse 75 11/01/2022 11:28 AM DOMESTIC TRAVEL CONSULTANT Temperature 36.7 C (98.1 F) 10/23/2022 1:39 PM DOMESTIC TRAVEL CONSULTANT Respiratory Rate 18 10/23/2022 1:39 PM DOMESTIC TRAVEL CONSULTANT Oxygen Saturation 94% 10/23/2022 1:39 PM DOMESTIC TRAVEL CONSULTANT Inhaled Oxygen Concentration - - Weight 142.4 kg (314 lb) 09/29/2024 9:32 AM CDT Height 179.1 cm (5' 10.5 ) 09/29/2024 9:32 AM CD T Body Mass Index 44.42 09/29/2024 9:32 AM CDT Plan of Treatment Health Maintenance Due Date Last Done Comments Colon Cancer Screening-Colonoscopy 1971 Depression Screening 1971 Hepatitis C Screening 1971 Prostate Cancer Screening-PSA 1971 DTaP/Tdap/Td Vaccine (1 - Tdap) 1982 Hepatitis B Screening 1989 Regular Well Visit/Exam 18-64 1989 Zoster Vaccine (1 of 2) 2021 Influenza Vaccine (#1) 2024 Pneumococcal vaccine <65 Aged Out No longer eligible based on patient's age to complete this topic Medical Devices Implanted Type Area Program Services Assistant Device Identifier Shelf Expiration Date Model / Serial / Lot [employer] Symmetry Vesolock Large Clip Internal [id number] - [id number] Implanted:Qty: 1 on 10/22/2022 by Danny Dee MD at [facility] N/A: Abdomen [employer] 01/29/2025 [id number] / / [id number] [employer] Symmetry Vesolock Large Clip Internal [id number] - [id number] Implanted:Qty: 1 on 10/22/2022 by Danny Dee MD at [facility] N/A: Abdomen [employer] 01/29/2025 [id number] / / [id number] Procedures Procedure Name Priority Date/Time Associated Diagnosis Comments NV ARTHROCENTESIS ASPIR&/INJ MAJOR JT/BURSA W/O US Routine 01/10/2025 9:45 AM DOMESTIC TRAVEL CONSULTANT Primary osteoarthritis of both knees XR KNEE RIGHT 4 OR MORE VIEWS Schedule Routine, Read Routine (OP Routine) 12/14/2024 2:02 PM DOMESTIC TRAVEL CONSULTANT Acute pain of right knee from Last 3 Months Results * NV ARTHROCENTESIS ASPIR&/INJ MAJOR JT/BURSA W/O US (01/10/2025 9:45 AM DOMESTIC TRAVEL CONSULTANT) Narrative Stephania Ordonez PA - 01/10/2025 9:45 AM DOMESTIC TRAVEL CONSULTANT Stephania Ordonez PA 01/10/2025 11:42 AM Large [...] GERARDO IN CLINIC/BEDSIDE OR DERABLES Final Result * XR Knee Right 4 or More Views (12/14/2024 2:02 PM DOMESTIC TRAVEL CONSULTANT) Anatomical Region Laterality Modality Lower Extremities, Knee Right Computed Radiography 12/14/2024 3:19 PM DOMESTIC TRAVEL CONSULTANT Impressions 12/14/2024 3:19 PM DOMESTIC TRAVEL CONSULTANT Moderate medial compartment predominant tricompartmental right knee osteoarthritis with right knee effusion. Electronically signed by: Antonio Bryan M.D. Narrative 12/14/2024 3:19 PM DOMESTIC TRAVEL CONSULTANT EXAMINATION: XR KNEE RIGHT 4 OR MORE [...] effusion. Electronically signed by: Antonio Bryan M.D. us Stephania GERARDO IMG XR PROCEDURES Fi nal Result from Last 3 Months Insurance Advance Directives For more information, please contact: [phone] * Full Code (Latest Code Status on File) Date Activated Date Inactivated Comments 10/22/2022 1:37 PM 10/23/2022 7:09 PM Care Teams Lab Courier Relationship Specialty Start Date End Date Yazan Hannah MD [address] [address] PCP - General 02/25/08 Danny Dee MD [address] [place] [address] Consulting Physician Urology 10/23/22
--- OUTSIDE RECORDS SUMMARY | 2025-01-10 14:20 | XMS_ITS | Referral Summary ---
Author Organization [facility] Address [address] [place] [address] Care Team Providers Care Signals Collector/Analyst Name Role Phone Yazan Hannah MD Primary Care Provider [phone] Source Comments [facility],non-owned Affiliates and Associated Physician Practices is amultiple site organization consisting of ambulatory clinics and hospital sitesin [place], [place], [place] and [place]. This disclosure is being madepursuant to the Care Everywhere program and may not contain all information available regarding this patient. Last updated 18.[employer] [facility] Allergies No known active allergies Medications Be [...] 08/09/2021 1:13 PM CDT Plan of Treatment Not on file Care Teams Signals Collector/Analyst Relationship Specialty Start Date End Date Yazan Hannah MD [address] [place] [address] PCP - General 07/24/21
== END ==
LOC: EXPBRAD 14:04
PROVIDERS: PCP Family Medicine; Visit Provider Family Medicine
DX: R14.0 Abdominal distension (gaseous) (principal)
CPT/HCPCS: 74018

== ENCOUNTER 2025-06-26 12:51 | Emergency (ER) | payer BC, SELFPAY ==
[2025-06-26 12:52] VITALS: BP 164/98; PULSE 81; RESP 14; TEMP 36.8; O2SAT 96
--- NOTE | 2025-06-26 14:22 | ED_ITS ---
HPI - General Adult General Chief complaint: Headache Stated complaint: headache for five days Time Seen by Provider: 06/26/25 13:54 History of Present Illness HPI narrative: 55-year-old male presents to the emergency department for evaluation for headache. Patient describes a short intermittent headache the right side of his scalp that does radiate to his right eye. Patient did have recent medication changes involving an increase in his extended release diltiazem. Patient does complain increased sinus pressure. Patient does have history of migraine but states this feels different. Related Data Home Medications ?Medication ?Instructions ?Recorded ?Confirmed ?Last Taken ?Type cyanocobalamin (vitamin B-12) 1,000 mcg PO DAILY 04/03/22 02/22/25 Unknown History 1,000 mcg tablet multivitamin 1 tablet PO DAILY 04/03/22 02/22/25 Unknown History diclofenac sodium 1 % topical gel 2 g topical QID PRN pain 11/22/24 02/22/25 Unknown History (Arthritis Pain (diclofenac)) Allergies Allergy/AdvReac Type Severity Reaction Status Date / Time No Known Allergies Allergy Verified 06/26/25 13:09 Review of Systems Review of Systems: All systems reviewed & are unremarkable except as noted in HPI and below PMFSH Past Medical History Medical History (Updated 06/26/25 @ 14:28 by Darnell Wheeler MD) Tension headache Abdominal bloating Acute non-recurrent maxillary sinusitis Lateral epicondylitis of right elbow (~2023) Elevated fasting glucose (10/08/24) fasting glucose 101 with GFR 71 on 10/08/2024. Bilateral chronic knee pain x-ray of the knees by Ortho on 09/29/2024 with moderate osteoarthritis. Steroid injections given. 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 Chronic rhinitis Sinusitis Vertigo Obstructive sleep apnea Cannot tolerate CPAP. Sleep study in lab on 09/12/2020 with moderate MARILYN with AHI of 18.6 with oxygen saturation down 84% with recommendation for auto titrating CPAP at 6-16 cm of water pressure on 10/09/2020. failure on CPAP Essential hypertension Right renal mass Arthritis Family history of rheumatism Rheumatoid factor 10.6 on 04/03/2022 with CRP 0.74. JOSE negative. Microscopic hematuria no blood in urine on 10/09/2023. Acute right flank pain UTI (urinary tract infection) Protein in urine 2+ protein in the urine 04/03/2022. 3+ protein 10/09/2023. Morbid obesity with BMI of 40.0-44.9, adult Vitamin D deficiency, unspecified Vitamin B12 deficiency anemia level normal at 1481, folic acid 19, hemoglobin 16.6 on 04/03/2022. Normal at 1173 with folic acid 19.1 and hemoglobin 15.2 on 10/09/2023. Normal at 1554 with hemoglobin 16.2 on 10/08/2024. GERD (gastroesophageal reflux disease) Dilated aortic root thoracic aorta slightly enlarged at 4.1 cm on 10/12/2019. Repeat echo 09/07/2020 with aorta borderline. Encounter for prostate cancer screening PSA 1.1 on 04/03/2022. PSA 1.4 on 10/09/2023. PSA 1.7 on 10/08/2024. Male erectile dysfunction, unspecified Total testosterone 354 with free testosterone low at 5.2 on 04/03/2022. Atypical chest pain Surgical History Surgical History H/O knee surgery Hx of partial nephrectomy No history of previous surgery Family History Family History Sibling Family history of gastrointestinal disorder Mother Patient's mother is in good health Family history of arthritis Father Patient's father is , Onset Age: 57 Family history of pancreatic cancer Grandparent Family history of liver disease, Onset Age: 55 Family history of arthritis Family history of pancreatic cancer Social History Social History Smoking status: Never smoker Second hand tobacco smoke exposure: Yes Alcohol intake: current Drinks per week: 2 Alcohol use details: occassional Substance use: never Substance use type: does not use Do You Feel Safe in your Home?: Yes Lack of Transportation: No Lack of Food: Never True Current Housing: I Have Housing Concerned About Future Housing: No Difficulty Paying Gas/Electric Bills: No Difficulty Paying for Meds: No Currently Unemployed: No Education: Bachelor's Degree Difficulty w/ Childcare or Family Care: No Living arrangements: with family Occupation/Education: occupation 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 HEAD: normocephalic, atraumatic. EYES: PERRLA/EOMI, conjunctivae clear. NOSE: Normal no drainage EARS:TMS clear with good light reflex. THROAT: Pharynx clear, no exudate. NECK: Supple. No adenopathy, no masses. RESPIRATORY: Airway patent, respirations nonlabored. Clear to auscultation bilaterally, no rales, rhonchi, wheezing. CARDIOVASCULAR: Regular rate and rhythm without murmurs rubs or gallops. ABDOMINAL: Soft, nontender, nondistended, normal bowel sounds MUSCULOSKELETAL: Moves all extremities. Strength/ROM intact, No edema, No calf tenderness. NEURO: Neuro distribution along the V1 trigeminal nerve SKIN: Subtle rash to scalp concerning for early shingles, tenderness with even moving the hair, no tenderness associated with temporal arteritis Course Vital Signs Vital signs: Vital Signs Temperature 98.3 F 06/26/25 12:52 Pulse Rate 81 06/26/25 12:52 Respiratory Rate 14 06/26/25 12:52 Blood Pressure 164/98 H 06/26/25 12:52 Pulse Oximetry 96 06/26/25 12:52 Oxygen Delivery Room Air 06/26/25 12:52 Temperature 98.3 F 06/26/25 12:52 Pulse Rate 81 06/26/25 12:52 Respiratory Rate 14 06/26/25 12:52 Blood Pressure 164/98 H 06/26/25 12:52 Pulse Oximetry 96 06/26/25 12:52 Oxygen Delivery Room Air 06/26/25 12:52 Medical Decision Making [facility] Narrative Medical decision making narrative: 55-year-old male presents emergency department for evaluation for headache. Does have a headache and rash. Rash is only located on the top of the scalp with no other facial involvement. Patient describes a short quick shooting pain. Patient will be treated for possible early shingles along with steroids for potential trigeminal neuralgia. Patient was encouraged of close follow-up with his primary care physician. Differential Diagnosis Differential Diagnosis: Trigeminal neuralgia, shingles, headache, migraine, sinus effect Vital Signs Vital Signs: Vital Signs Temperature 98.3 F 06/26/25 12:52 Pulse Rate 81 06/26/25 12:52 Respiratory Rate 14 06/26/25 12:52 Blood Pressure 164/98 H 06/26/25 12:52 Pulse Oximetry 96 06/26/25 12:52 Oxygen Delivery Room Air 06/26/25 12:52 Temperature 98.3 F 06/26/25 12:52 Pulse Rate 81 06/26/25 12:52 Respiratory Rate 14 06/26/25 12:52 Blood Pressure 164/98 H 06/26/25 12:52 Pulse Oximetry 96 06/26/25 12:52 Oxygen Delivery Room Air 06/26/25 12:52 Discharge Plan Discharge Clinical Impression: Headache, Shingles rash, Right trigeminal neuralgia Patient Disposition: Home Condition: Stable Instructions: Antibiotic Form, Shingles (ED), Trigeminal Neuralgia (ED) Additional Instructions: Valacyclovir as directed until completed. Medrol Dosepak as directed until completed. Hazard as needed for pain control. Have close follow-up with your primary care physician. Patient Language: Luxembourgish Prescriptions: New hydrocodone-acetaminophen 5-325 mg tablet 1 tablet PO Q12H PRN (Reason: pain) Qty: 14 0RF valacyclovir 1 gram tablet 1,000 mg PO Q8H 10 Days Qty: 30 0RF methylprednisolone [Medrol (Meño)] 4 mg tablets,dose pack See Rx Instructions .ROUTE .COMPLEX Qty: 21 0RF Rx Instructions: for 6 days No Action cyanocobalamin (vitamin B-12) 1,000 mcg tablet 1,000 mcg PO DAILY multivitamin Tablet 1 tablet PO DAILY diclofenac sodium [Arthritis Pain (diclofenac)] 1 % gel 2 g topical QID PRN (Reason: pain) Patient Comments: [id number] Rx Instructions: apply to single elbow, wrist or hand; for hand includes palm/fingers/back of hand irbesartan 300 mg tablet 300 mg PO DAILY Qty: 90 3RF sildenafil 100 mg tablet 100 mg PO DAILY PRN (Reason: sexual activity) Qty: 10 11RF Zepbound 2.5 mg/0.5 mL pen injector 2.5 mg subcut WEEKLY Qty: 2 0RF Rx Instructions: for 4 weeks [id number] 50-325-40 mg tablet 1 tablet PO Q6H PRN (Reason: pain) Qty: 60 0RF diltiazem HCl [Cardizem CD] 120 mg capsule,extended release 24hr 120 mg PO DAILY Qty: 90 3RF Rx Instructions: headache with higher dose nebivolol [Bystolic] 10 mg tablet 10 mg PO DAILY Qty: 90 3RF Follow-up/Referrals: Yazan Hannah MD [Primary Care Provider] -
--- OUTSIDE RECORDS SUMMARY | 2025-06-26 14:22 | XMS_ITS | Clinical Summary ---
Author Organization [facility] Address [address] [place] [address] [place] [address] Care Team Providers Care Railroad Conductor Name Role Phone Unavailable Primary Care Provider Unavailabl e Encounters Date Type Department Care Team Description 05/24/2025 External Device Data [facility] Provider, Abstract from Last 3 Months Social History Tobacco Use Types Packs/Day Years Used Date Smoking Tobacco: Never Assessed Sex and Gender Information Value Date Recorded Sex Assigned at Not on file Legal Sex Male 2:50 PM CDT Gender Identity Not on file Sexual Orientation Not on file Plan of Treatment Health Maintenance Due Date Last Done Comments DTAP/TDAP/TD VACCINES (1 - Tdap) 1990 HEPATITIS B VACCINES (1 of 3 - 19+ 3-dose series) 01/02 COLORECTAL SCREENING 2016 Colorectal Cancer Screening 2016 FIT-DNA Q 3 years 2016 FIT/FOBT Q 1 year 2016 Flex Sig/CT Colonography Q 5 years 2016 ZOSTER VACCINE (1 of 2) 2021 INFLUENZA VACCINE (#1) 2025 Insurance [employer] [facility] [id number]
[2025-06-26] MEDS: HYDROcodone/acetaminophen (*CRX) 10-325 MG TABLET 1 TAB PO (14:45)
[2025-06-26] MEDS: dexAMETHasone SOD PHOS INJ 10 MG/ML 1 ML VIAL IM (14:46)
[2025-06-26] MEDS: KETOROLAC 30 MG/ML VIAL (*BKC) IM (14:46)
== END 2025-06-26 14:58 | disposition home or self-care (01) ==
PROVIDERS: Emergency Provider Emergency Medicine; PCP Family Medicine
DX: B02.9 Zoster without complications (principal); G50.0 Trigeminal neuralgia; R51.9 Headache, unspecified; I10 Essential (primary) hypertension; E66.01 Morbid (severe) obesity due to excess calories; Z68.41 Body mass index [BMI] 40.0-44.9, adult; E55.9 Vitamin D deficiency, unspecified; G47.33 Obstructive sleep apnea (adult) (pediatric); D51.9 Vitamin B12 deficiency anemia, unspecified; M19.90 Unspecified osteoarthritis, unspecified site; Z87.440 Personal history of urinary (tract) infections; Z85.528 Personal history of other malignant neoplasm of kidney; Z90.5 Acquired absence of kidney; Z77.22 Contact with and (suspected) exposure to environmental tobacco smoke (acute) (chronic)
CPT/HCPCS: 96372; 99284; A9270; J1100; J1885